=== PATIENT | female | born 1980 | race Caucasian/White ===

== ENCOUNTER → 2021-11-18 13:34 | Outpatient (CLI) | payer OTHER, SELFPAY ==
--- NOTE | ~2021-11-18 | MR_ITS ---
EXAMINATION: MR knee RT wo con DATE: 11/18/2021 14:17 INDICATION: Loose body of the right knee TECHNIQUE: Magnetic resonance imaging (MRI) of the right knee was performed without intravenous contr ast. Sequences included coronal PD-weighted FSE, coronal PD-weighted FS FSE, sagittal T2-weighted FS E, sagittal PD-weighted FS FSE and axial PD weighted fat saturated FSE. COMPARISON: None. FINDINGS: Medial compartment: Medial meniscus is normal. Mild partial-thickness chondral fissuring at the anterior weightbearing me dial femoral condyle. Lateral compartment: Lateral meniscus is normal. Deep chondral fissure at the anterior weightbearing lateral femoral condy le. More shallow chondral fissuring at the posterior weightbearing lateral femoral condyle. Patellofemoral compartment: Deep chondral ulceration fissuring at the lateral patellar facet with small region of mild subarticul ar edema-like signal change at the cephalad aspect of the lateral facet. Partial-thickness cartilage loss and additional deep fissuring along the caudal half of the lateral trochlea and trochlear groove . Ligaments and tendons: Anterior and posterior cruciate ligaments are normal. The medial collateral ligament and fibular domonique ateral ligament complex are normal. The extensor mechanism is normal. The visualized medial and later al hamstring tendons as well as the iliotibial band are normal. Fluid: Physiologic amount of fluid in the joint space. No loose osteochondral bodies identified. Osseous/other: Bone island at the lateral tibial plateau. No fracture or pathologic marrow replacing process. IMPRESSION: 1. 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 More localized small regions of deep chondral fissuring at the anterior weightbearing medial later al femoral condyles. Reviewed, dictated and finalized at location A. IMPRESSION: 1. 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 More localized small regions of deep chondral fissuring at the anterior weig htbearing medial lateral femoral condyles.
== END ==
PROVIDERS: PCP Orthopaedic Surgery; Visit Provider Orthopaedic Surgery
DX: M23.41 Loose body in knee, right knee (principal); M24.19 Other articular cartilage disorders, other specified site
CPT/HCPCS: 73721